=== PATIENT | female | born 1965 | race Caucasian/White ===

== ENCOUNTER → 2024-07-16 | Outpatient (CLI) | payer MEDICARE, MEDICAID, SELFPAY ==
--- NOTE | 2024-07-16 14:30 | XR_ITS ---
Examination: CT abdomen with intravenous contrast. Coronal 2-D reconstructions. Sagittal 2-D reconstructions. Date and time of exam:July 16, 2024 1713 hrs. Indications: Elevated alkaline phosphatase on left are examination one month ago CTDI: vol (mGy): 9.65 DLP: (mGycm): 470 Technique: Axial images of the abdomen have been obtained, 3 mm slice thickness, 60 cc [id number] 2-D sagittal coronal reconstructions Low dose protocols were performed. One or more of the following dose reduction techniques were used; automated exposure control, adjustment of the mA and/or KV according to patient size, use of iterative reconstruction technique. Findings: Atelectasis in the right lower lobe Moderate elevation right hemidiaphragm Diffuse fatty infiltration Absent gallbladder No pancreatic mass Biliary stent satisfactory position with no extrahepatic biliary tract dilatation No hydronephrosis Abdominal aortic calcification no residual dilatation Normal appendix No bowel obstruction Impression: Hepatomegaly 17.8 cm with fatty liver Biliary stent satisfactory position with no extrahepatic biliary tract dilatation
== END | disposition home or self-care (01) ==
LOC: SCAT 14:10
PROVIDERS: Referring Provider Internal Medicine; Visit Provider Internal Medicine
DX: K76.0 Fatty (change of) liver, not elsewhere classified (principal)
CPT/HCPCS: 74160; A4649; Q9967